=== PATIENT | female | born 1950 | race Caucasian/White ===

== ENCOUNTER → 2017-04-02 | Outpatient (CLI) | payer MEDICARE, BC ==
--- NOTE | 2017-04-03 11:27 | RSPPFT ---
DATE OF PROCEDURE: 04/02/17 COMMENTS: The forced vital capacity, FEV1, FEV1/FVC ratio and FEF 25-75 are all normal. The total lung capacity and residual volumes are normal with a normal RV/TLC ratio. IMPRESSION: 1. This is a normal pulmonary function study. 2. The diffusion capacity is normal.
== END ==
LOC: HRSP 09:49
PROVIDERS: ATTEND Internal Medicine Cardiovascular Disease
DX: R06.02 Shortness of breath (principal)
CPT/HCPCS: 94060; 94726; 94729